=== PATIENT | female | born 1995 | race Two or more races ===

== ENCOUNTER 2021-09-02 21:54 | Emergency (ER) | payer OTHER ==
[~2021-09-02] VITALS: Ht 165.1 cm; Wt 81.6 kg
--- NOTE | 2021-09-02 22:23 | NUR ---
[facility] STATUS POST WITNESSED SYNCOPAL EPISODE/SZR WHILE DOING BLOOD DRAW AT SCHOOL. 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 PT REPORTS FEELING LIGHTHEADED BUT DENIES ANY PAIN OR INJURIES FOLLOWING EPISODE. NO NEURO DEFICITS OR CONFUSION. PLACED ON MONITOR SZR PRECATIONS IMPLEMENTED VSS. MD WAS AT BEDSIDE FOR EVAL.
--- NOTE | 2021-09-02 22:49 | NUR ---
pt to ct
[2021-09-02 22:50] LABS: BASOPHILS # (AUTO) 0.1 K/uL (0.0-0.2); BASOPHILS % (AUTO) 0.8 % (0.0-2.0); EOSINOPHILS % (AUTO) 0.8 % (0.0-6.0); HEMATOCRIT 38 % (33-45); HEMOGLOBIN 12.1 g/dL (11.5-14.8); LYMPHOCYTES # (AUTO) 2.4 K/uL (0.8-4.8); LYMPHOCYTES % (AUTO) 17.5 % (20.0-44.0); MEAN CORPUSCULAR HGB CONC 32 g/dl (31.0-36.0); MEAN CORPUSCULAR VOLUME 75 fL (82-100); MONOCYTES # (AUTO) 0.7 K/uL (0.1-1.30); NEUTROPHILS # (AUTO) 10.5 K/uL (1.8-8.9); NEUTROPHILS % (AUTO) 75.9 % (43.0-81.0); PLATELET COUNT (AUTO) 421 K/uL (150-450); RED BLOOD CELL COUNT(AUTO) 5.12 MIL/uL (4.0-5.2); WHITE BLOOD COUNT (AUTO) 13.8 K/uL (4.3-11.0)
[2021-09-02 23:08] LABS: ALANINE AMINOTRANSFERASE 48 U/L (12-78); ALKALINE PHOSPHATASE 85 U/L (46-116); ASPARTATE AMINOTRANSFERASE 23 U/L (15-37); BILIRUBIN,DIRECT 0.1 mg/dL (0.0-0.2); BILIRUBIN,TOTAL 0.3 mg/dL (0.2-1.0); CALCIUM, SERUM 9.3 mg/dL (8.5-10.1); CARBON DIOXIDE 25 mmol/L (21-32); CHLORIDE 103 mmol/L (98-107); CREATININE 0.7 mg/dL (0.6-1.3); GLUCOSE 135 mg/dL (74-106); POTASSIUM 3.5 mmol/L (3.5-5.1); SODIUM SERUM 139 mmol/L (136-145); TOTAL PROTEIN, SERUM 8.3 g/dL (6.4-8.2); UREA NITROGEN, BLOOD 8 mg/dL (7-18)
[2021-09-02 23:11] LABS: ALCOHOL, BLOOD < 3 mg/dL (0-0)
[2021-09-02] MEDS ORDERED: IV NS 0.9% 1,000 ML BAG IV ONE (23:30)
[2021-09-03 00:19] VITALS: BP 133/81
--- NOTE | 2021-09-03 00:19 | NUR ---
Patient discharged to home in stable condition. Written and verbal after care instructions given. Patient verbalizes understanding of instruction.
== END 2021-09-03 00:19 | disposition home or self-care (01) ==
LOC: ER 21:56
DX: R55 Syncope and collapse (principal); R00.0 Tachycardia, unspecified
CPT/HCPCS: 36415; 70450-TC; 71045-TC; 80048-TC; 80076-TC; 82962-TC; 85025-TC; 85730-TC; G0480